=== PATIENT | female | born 1990 | race African-American/Black ===

== ENCOUNTER 2025-04-04 19:25 | Inpatient (IN) | payer BC ==
[2025-04-04 20:51] LABS: ABSOLUTE IMMATURE GRANULOCYTES 0.04 x10^3/uL (0.0-0.031); BASOPHILS # 0.04 x10^3/uL (0.01-0.08); EOSINOPHIL % 0.7 % (0.7-5.8); EOSINOPHILS # 0.05 x10^3/uL (0.04-0.36); HEMOGLOBIN 10.6 g/dL (11.2-15.7); MCHC 32.1 g/dl (32.2-35.5); MEAN CELL VOLUME 83.5 fl (79.4-94.8); MEAN PLT VOLUME 8.6 fl (9.4-12.3); MONOCYTE # 0.93 x10^3/uL (0.24-0.86); MONOCYTE % 12.3 % (4.7-12.5); PLATELET COUNT 410 x10^3/uL (182-369); RDW 13.9 % (12.1-16.8)
[2025-04-04] MEDS: SODIUM CHLORIDE 1,000 ML IV SCH (21:00)
[2025-04-04] MEDS ORDERED: MISOPROSTOL 100 MCG TABLET PV SCH (21:00)
[2025-04-04 21:14] LABS: INR 0.93 (0.83-1.09); PROTHROMBIN TIME (PATIENT) 10.1 SEC (9.7-13.0)
[2025-04-04 21:16] LABS: ACTIVATED PTT 27.5 SECONDS (25.2-36.5)
[2025-04-04 21:20] LABS: POTASSIUM 4.3 mmol/L (3.5-5.1)
[2025-04-04 21:22] LABS: ALBUMIN 2.6 g/dl (3.4-5.0); BLOOD UREA NITROGEN 18.5 mg/dL (7-18); CALCIUM 9.8 mg/dL (8.5-10.1)
[2025-04-04 21:26] LABS: CREATININE 1.4 mg/dL (0.55-1.3)
[2025-04-04 21:27] LABS: BILIRUBIN,TOTAL 0.3 mg/dL (0.2-1); TOT PROT 6.4 g/dl (6.4-8.2)
[2025-04-04] MEDS: MISOPROSTOL 25 MCG TABLET (COMPOUNDED BY PHARMACY) PV SCH (22:10)
[2025-04-04 23:06] VITALS: BMI 39.9
[2025-04-05] MEDS: CITRIC ACID/SODIUM CITRATE 30 ML UNIT-DOSE CUP PO ONE (01:00)
[2025-04-05] MEDS: DEXTROSE 5%-NORMAL SALINE 1,000 ML IV SCH (04:30)
[2025-04-05] MEDS: morphine SULFATE 4 MG/ML VIAL IVPB PRN (05:27)
[2025-04-05] MEDS ORDERED: FENTANYL/BUPIVACAINE/NS/PF - PCEA - 50 ML DISP.SYRIN EP ONE (06:42)
[2025-04-05] MEDS ORDERED: NALOXONE HCL 0.4 MG/ML VIAL IVPUSH PRN (07:08)
[2025-04-05] MEDS ORDERED: BUPIVACAINE HCL/PF 0.25% (2.5MG/ML) 10 ML VIAL ONE (07:10)
[2025-04-05] MEDS ORDERED: FENTANYL CITRATE/PF 50 MCG/ML VIAL ONE (07:10)
[2025-04-05] MEDS: FENTANYL/BUPIVACAINE/NS/PF - PCEA - 50 ML DISP.SYRIN EP SCH (07:15)
[2025-04-05] MEDS: SODIUM CHLORIDE 1,000 ML IV STA (07:26)
[2025-04-05] MEDS ORDERED: PENICILLIN G POTASSIUM 5,000,000 UNIT/250 ML BAG IVPB ONE (08:18)
[2025-04-05] MEDS ORDERED: OXYTOCIN 10 UNITS/ML VIAL ONE (08:26)
[2025-04-05] MEDS ORDERED: OXYTOCIN 20 UNITS in 0.9% NS 20 UNIT/1,000 ML INFUS.BAG IV ONE (08:26)
[2025-04-05] MEDS: OXYTOCIN 10 UNITS/ML VIAL IM ONE (08:36)
[2025-04-05] MEDS: OXYTOCIN 20 UNITS in 0.9% NS 20 UNIT/1,000 ML INFUS.BAG IV SCH (08:36)
[2025-04-05 08:59] LABS: CORD BASE EXCESS -11.8 mmol/L (0-2); CORD BASE EXCESS -6.6 mmol/L (0-2); CORD HCO3 20.9 mmHg (20-29); CORD HCO3 21.8 mmHg (20-29); CORD PCO2 54.1 mmHg (30-78); CORD pH 7.045 (7.14-7.44); CORD pH 7.224 (7.14-7.44)
[2025-04-05] MEDS ORDERED: BENZOCAINE 28 GM HEMORRHOIDAL OINTMENT TP PRN (09:09)
[2025-04-05] MEDS ORDERED: WITCH HAZEL 50% (TUCKS) 40 PAD/JAR PAD TP PRN (09:09)
[2025-04-05] MEDS: IBUPROFEN 600 MG TABLET (FP) PO PRN (11:10)
[2025-04-05 12:31] VITALS: RESP 18
[2025-04-05] MEDS: INSULIN (NOVOLOG) ASPART 100 UNITS/ML 10ML VIAL SQ ONE (22:12)
[2025-04-05] MEDS ORDERED: INSULIN ASPART SLIDING SCALE (NOVOLOG) 1 VIAL SQ ONE (22:15)
[2025-04-05] MEDS: ACETAMINOPHEN 325 MG TABLET (FP) PO PRN (22:17)
[2025-04-06 07:40] LABS: ABSOLUTE IMMATURE GRANULOCYTES 0.08 x10^3/uL (0.0-0.031); BASOPHILS # 0.05 x10^3/uL (0.01-0.08); EOSINOPHIL % 0.4 % (0.7-5.8); EOSINOPHILS # 0.05 x10^3/uL (0.04-0.36); HEMATOCRIT 30.8 % (34.1-44.9); HEMOGLOBIN 9.6 g/dL (11.2-15.7); MCHC 31.2 g/dl (32.2-35.5); MEAN CELL VOLUME 84.8 fl (79.4-94.8); MEAN PLT VOLUME 8.9 fl (9.4-12.3); MONOCYTE # 1.39 x10^3/uL (0.24-0.86); MONOCYTE % 10.1 % (4.7-12.5); PLATELET COUNT 352 x10^3/uL (182-369); RDW 14.3 % (12.1-16.8)
[2025-04-06] MEDS: MAG HYDROX/AL HYDROX/SIMETH 30 ML UNIT-DOSE CUP PO PRN (21:41)
[2025-04-07] MEDS: LABETALOL HCL 100 MG TABLET (FP) PO SCH (09:10)
[2025-04-07 15:17] VITALS: BP 122/69; PULSE 98; TEMP 97.9
== END 2025-04-07 18:55 | disposition home or self-care (01) | DRG 807 ==
LOC: JLDR 19:25 → J3W 04-05 10:59
PROVIDERS: ADMIT Obstetrics & Gynecology Maternal & Fetal Medicine; ATTEND Obstetrics & Gynecology Maternal & Fetal Medicine
PROC: 10E0XZZ Delivery of Products of Conception, External Approach (ICD-10-PCS; principal; 2025-04-05)
PROC: 0HQ9XZZ Repair Perineum Skin, External Approach (ICD-10-PCS; 2025-04-05)
PROC: 0W8NXZZ Division of Female Perineum, External Approach (ICD-10-PCS; 2025-04-05)
DX: O14.94 Unspecified pre-eclampsia, complicating childbirth (principal); Z37.0 Single live birth; O99.214 Obesity complicating childbirth; O70.0 First degree perineal laceration during delivery; O99.820 Streptococcus B carrier state complicating pregnancy; O24.12 Pre-existing type 2 diabetes mellitus, in childbirth; Z3A.37 37 weeks gestation of pregnancy
CPT/HCPCS: 36415; 36600; 59409; 80053; 82803; 82962; 85025; 85610; 85730; 86780; 86850; 86900; 86901; 88307-TC